=== PATIENT | male | born 1960 | race African-American/Black ===

== ENCOUNTER 2018-03-07 21:30 | Emergency (ER) | payer MEDICAID ==
[~2018-03-07] VITALS: Ht 172.7 cm; Wt 59.5 kg
[2018-03-08] MEDS ORDERED: KETOROLAC 60MG/2ML VIAL IM STA (01:33)
[2018-03-08 03:15] VITALS: BP 97/56
== END 2018-03-08 03:18 | disposition home or self-care (01) ==
LOC: ER 21:30
DX: S13.4XXA Sprain of ligaments of cervical spine, initial encounter (principal); S33.9XXA Sprain of unspecified parts of lumbar spine and pelvis, initial encounter; F12.10 Cannabis abuse, uncomplicated; F17.200 Nicotine dependence, unspecified, uncomplicated; V79.9XXA Bus occupant (driver) (passenger) injured in unspecified traffic accident, initial encounter; Y93.89 Activity, other specified; Y92.89 Other specified places as the place of occurrence of the external cause; Y99.8 Other external cause status
CPT/HCPCS: 72100; 72125; 96372; 99284; J1885